=== PATIENT | male | born 1980 | race Caucasian/White ===

== ENCOUNTER 2020-08-13 08:05 | Emergency (ER) | payer OTHER ==
[~2020-08-13] VITALS: Ht 170.2 cm; Wt 71.0 kg
[2020-08-13] MEDS ORDERED: ACETAMINOPHEN 325 MG TAB PO ONE (08:35)
[2020-08-13] MEDS ORDERED: KETOROLAC 30 MG/ML 1ML VIAL IM ONE (08:35)
[2020-08-13] MEDS ORDERED: CYCL-707 PO (09:16)
[2020-08-13] MEDS ORDERED: KETO10TAB PO (09:16)
[2020-08-13 10:05] VITALS: BP 126/71
== END 2020-08-13 10:07 | disposition home or self-care (01) ==
LOC: M ED 08:05
DX: M62.830 Muscle spasm of back (principal); M54.5 Low back pain
CPT/HCPCS: 96372; 99283; J1885

== ENCOUNTER 2021-04-15 10:38 | Emergency (ER) | payer OTHER ==
[~2021-04-15] VITALS: Ht 170.2 cm; Wt 72.7 kg
[~2021-04-15 10:38] MED LIST: CYCL-707 PO; KETO10TAB PO
[2021-04-15] MEDS ORDERED: ALPRAZolam 0.5 MG TAB PO ONE (13:35)
[2021-04-15 14:01] LABS: BASO % 0.5 % (0.0-1.0); EOS % 0.3 % (0.0-3.0); HEMATOCRIT 48.3 % (42.0-52.0); HEMOGLOBIN 16.5 g/dl (13.5-17.5); LYMPH # 2.3 10^3/uL (1.5-5.0); LYMPH % 25.6 % (24.0-44.0); MEAN CORPUSCULAR HEMOGLOBIN 31.3 pg (27.0-33.0); MEAN CORPUSCULAR HGB CONC 34.2 g/dl (32.0-36.5); MEAN CORPUSCULAR VOLUME 91.7 fl (80.0-96.0); MONO # 0.5 10^3/uL (0.0-0.8); MONO % 5.6 % (2.0-8.0); NEUTROPHILS % 67.8 % (36.0-66.0); PLATELET COUNT, AUTOMATED 279 10^3/uL (150-450); RED BLOOD COUNT 5.27 10^6/uL (4.30-6.10); WHITE BLOOD COUNT 8.9 10^3/uL (4.0-10.0)
[2021-04-15 14:33] LABS: FREE THYROXINE INDEX 2.4 % (1.4-3.8); MAGNESIUM LEVEL 2.1 MG/DL (1.8-2.4); THYROID STIMULATING HORMONE 1.28 uIU/ML (0.358-3.740); THYROXINE (T4) 6.5 UG/DL (4.5-12.0)
[2021-04-15] MEDS ORDERED: HYDR-3363 PO (14:54)
[2021-04-15 15:01] VITALS: BP 137/96
== END 2021-04-15 15:10 | disposition home or self-care (01) ==
LOC: M ED 10:38
DX: R07.89 Other chest pain (principal); R06.02 Shortness of breath; F41.9 Anxiety disorder, unspecified

== ENCOUNTER 2022-05-12 17:59 | Emergency (ER) | payer OTHER ==
[~2022-05-12] VITALS: Ht 170.2 cm; Wt 73.9 kg
[~2022-05-12 17:59] MED LIST changes: +HYDR-3363 PO
[2022-05-12] MEDS ORDERED: IBUP200C28 PO (18:34)
[2022-05-12 23:24] VITALS: BP 167/98
== END 2022-05-13 01:00 | disposition left against medical advice (07) ==
LOC: M ED 17:59
DX: K08.89 Other specified disorders of teeth and supporting structures (principal); Z53.21 Procedure and treatment not carried out due to patient leaving prior to being seen by health care provider